=== PATIENT | female | born 1970 | race Two or more races ===

== ENCOUNTER → 2016-11-09 | Outpatient (CLI) | payer OTHER ==
[~2016-11-09] MED LIST: IOHEXOL 240 MG/ML 50ML VIAL. ONE; IOHEXOL 300 MG/ML 75 ML VIAL. IV ONE
--- NOTE | 2016-11-09 09:58 | RAD ---
CT abdomen and pelvis with IV contrast History: Left-sided flank pain radiating to the pelvis since left salpingo-oophorectomy for weeks earlier. Comparison: None. Technique: After administration of oral and intravenous contrast, 75 mL Omnipaque 300, helical CT of the abdomen and pelvis was performed from the lung bases through the ischial tuberosities. Axial, sagittal, and coronal reconstructions were obtained. One or more of the following individualized dose reduction techniques were utilized for the study: Automated exposure control Adjustment of mA and/or kV according to patient's size Use of iterative reconstruction technique. Findings: Left hepatic lobe demonstrates subcentimeter subcapsular low-attenuation lesion, not adequately characterized on this examination, probably cyst. Spleen, pancreas, gallbladder, and bilateral adrenal glands are unremarkable. Bilateral kidneys enhance symmetrically. There is no evidence of bowel obstruction. No free air or significant free fluid is identified in the abdomen or pelvis. Appendix is not confidently seen, but no inflammatory changes identified adjacent to the cecum. Urinary bladder is unremarkable. The uterus demonstrates presence of endometrial fluid. Small right ovarian physiologic follicle is seen. Left ovary is not identified, compatible provided surgical history. Involving just right of midline of of the rectus abdominis musculature of the anterior pelvis, there is a small fat-containing incisional hernia with the hernia defect is estimated to measure 1 cm. There is no evidence of free air or abscess in the abdomen or pelvis. Impression: 1. Small fat-containing incisional hernia involving the lower rectus abdominis musculature. 2. No acute abnormality identified in the abdomen or pelvis.
== END | disposition home or self-care (01) ==
LOC: CT 07:27
PROVIDERS: ATTEND Obstetrics & Gynecology
DX: K43.2 Incisional hernia without obstruction or gangrene (principal)
CPT/HCPCS: 74177; Q9966; Q9967